=== PATIENT | female | born 1950 | race Caucasian/White ===

== ENCOUNTER 2016-12-17 20:49 | Emergency (ER) | payer MEDICARE, OTHER ==
[~2016-12-17] VITALS: Ht 165.1 cm; Wt 80.0 kg
[2016-12-17 20:57] VITALS: BP 144/82; PULSE 80; RESP 18; TEMP 98.6; O2SAT 98
[2016-12-17] MEDS ORDERED: METH10TA PO (21:49)
[2016-12-17] MEDS ORDERED: AMBI10TA PO (21:49)
--- NOTE | 2016-12-17 22:10 | PD ---
HPI Chief Complaint: ENT Complaint Time Seen by Provider: 22:10 Travel History International Travel<30 days: No Contact w/Intl Traveler<30days: No Traveled to known affect area: No History of Present Illness HPI 66-year-old female with a history of chronic coccyx pain and insomnia presents to the emergency department for evaluation of sore throat for 1 week. States that her throat pain is mostly on the left side. States that it is aggravated with swallowing. States that when she is not swallowing she does not have the pain. She denies any difficulty swallowing or feeling of obstruction, no excessive salivation or difficulty handling secretions. She denies any fever, chills, nausea, vomiting, nasal congestion, runny nose, cough or cold symptoms. She is concerned she may have strep throat. She has not taken anything for symptoms so far. Denies any history of smoking cigarettes. No other complaints. PFSH Past Medical History Medical other: Yes (rsd) Tetanus Vaccination: > 5 Years Influenza Vaccination: No ?: Not Past Surgical History Cholecystectomy: Yes Social History Alcohol Use: No Tobacco Use: No Substance Use: No Allergies-Medications (Allergen,Severity, Reaction): Coded Allergies: Contrast Media (Verified Allergy, Severe, Anaphylaxis, 12/17/16) Reported Meds & Prescriptions Reported Meds & Active Scripts Active Amoxicillin 875 Mg Tab 875 Mg PO BID 10 Days Reported Methadone (Methadone HCl) 10 Mg Tab 20 Mg PO TID Ambien (Zolpidem Tartrate) 10 Mg Tab 10 Mg PO HS PRN Review of Systems Except as stated in HPI: all other systems reviewed are Neg Physical Exam Narrative GENERAL: Well-nourished and well-developed pleasant patient in no acute distress who is nontoxic appearing. SKIN: Warm and dry. HEAD: Normocephalic and atraumatic. EYES: No injection, drainage, or hyphema noted. PERRLA. EOMI. ENT: No nasal drainage noted. Oropharynx is clear and the TMs are normal with good landmarks. NECK: Supple and the trachea is midline. No lymphadenopathy is noted throughout the cervical chains. CARDIOVASCULAR: Regular rate and rhythm. RESPIRATORY: Breath sounds are equal bilaterally with no accessory muscle use, wheezing, rhonchi, or crackles. NEUROLOGICAL: Awake, alert, and oriented. Normal speech and gait. Cranial nerves are grossly intact. Data Data Last Documented VS Vital Signs Date Time Temp Pulse Resp B/P Pulse Ox O2 Delivery O2 Flow Rate FiO2 12/17/16 20:57 98.6 80 18 144/82 98 Orders Group A Rapid Strep Screen (12/17/16 22:10) Strep Culture (Group A) (12/17/16 22:25) MDM Medical Decision Making Medical Screen Exam Complete: Yes Emergency Medical Condition: Yes Differential Diagnosis Pharyngitis versus strep versus viral versus URI Narrative Course 66-year-old female presents to the emergency department for evaluation of sore throat for 1 week. Patient is afebrile, vital signs are stable. Physical examination is unremarkable. Strep swab has been ordered and is pending. Strep swab is negative. I discussed with the patient that her strep swab is negative and physical examination is essentially unremarkable. The patient is stating that she has had similar symptoms to this in the past and it was strep and she is requesting antibiotic therapy. Due to the duration of the patient's symptoms we will give Amoxicillin although I did tell her this could be a viral pharyngitis. Diagnosis Primary Impression: Pharyngitis Qualified Code: J02.9 - Pharyngitis, unspecified etiology Referrals: Primary Care Physician Patient Instructions: General Instructions, Pharyngitis (ED) Additional Instructions: Take medications as prescribed. Follow-up with your Primary Care Physician. Return to the ED for any acute worsening of symptoms. Med/Other Pt SpecificInfo: Prescription(s) given Scripts Amoxicillin 875 Mg [id number] Mg PO BID 10 Days Ref 0 Prov:Kale Lim MD 12/17/16 Disposition: 01 DISCHARGE HOME Condition: Stable Genny Maxwell Dec 17, 2016 22:10
[2016-12-17] MEDS ORDERED: AMOX875T PO (22:56)
== END 2016-12-17 23:16 | disposition home or self-care (01) ==
LOC: PHED 20:49 → PHEFT 23:16
DX: J02.9 Acute pharyngitis, unspecified (principal); M53.3 Sacrococcygeal disorders, not elsewhere classified; G47.00 Insomnia, unspecified
CPT/HCPCS: 87081; 87880; 99283